=== PATIENT | male | born 1980 | race Caucasian/White ===

== ENCOUNTER 2021-12-08 20:26 | Emergency (ER) | payer SELFPAY ==
[~2021-12-08] VITALS: Ht 167.6 cm; Wt 74.8 kg
[2021-12-08 20:35] VITALS: BP 110/67
[2021-12-08] MEDS ORDERED: ESCI5TAB PO (20:47)
== END 2021-12-08 20:59 | disposition home or self-care (01) ==
LOC: ER 20:28
DX: F10.10 Alcohol abuse, uncomplicated (principal); F32.A Depression, unspecified; Z79.899 Other long term (current) drug therapy; Y90.9 Presence of alcohol in blood, level not specified